=== PATIENT | female | born 1950 | race Caucasian/White ===

== ENCOUNTER → 2020-03-20 08:35 | Outpatient (CLI) | payer OTHER, SELFPAY ==
--- NOTE | 2020-03-20 08:45 | DI.MG.S_ITS ---
Patient Name: MIRELA OROZCO date: 1950 Sex: F Attending Physician: Brigitte Indications: Date: 03/20/2020 08:39 At the request of: KATIE PEDERSEN Procedure: MM screening mammo BI BILATERAL DIGITAL SCREENING MAMMOGRAM 3D/2D WITH CAD: 03/20/2020 CLINICAL: Routine screening. Comparison is made to exams dated: 05/03/2017 mammogram - [facility], 05/02/2014 mammogram - [facility], and 11/27/2012 [facility]. There are scattered fibroglandular elements in both breasts. Current study was also evaluated with a Computer Aided Detection (CAD) system. There are grouped calcifications in the right breast at 12 o'clock middle depth. No other significant masses, calcifications, or other findings are seen in either breast. IMPRESSION: INCOMPLETE: NEEDS ADDITIONAL IMAGING EVALUATION The grouped calcifications in the right breast are indeterminate. A spot compression view is recommended. This exam was interpreted at Station ID: [id number]. NOTE: For mammograms, a report in lay terms will be sent to the patient. Approximately 15% of breast malignancies will not be visualized mammographically. In the management of a palpable breast mass, a negative mammogram must not discourage biopsy of a clinically suspicious lesion. Electronically Signed By: Sheryl ortiz/:03/23/2020 08:31:37 letter sent: Additional Imaging Needed ACR BI-RADS Category 0: Incomplete 3340F
== END ==
PROVIDERS: Family Provider Family Medicine; PCP Family Medicine; Referring Provider Family Medicine; Visit Provider Family Medicine
DX: Z12.31 Encounter for screening mammogram for malignant neoplasm of breast (principal)
CPT/HCPCS: 77063; 77067

== ENCOUNTER → 2020-05-10 12:44 | Outpatient (CLI) | payer OTHER, SELFPAY ==
--- NOTE | 2020-05-10 | DI.MG.S_ITS ---
UNILATERAL RIGHT DIGITAL DIAGNOSTIC MAMMOGRAM 3D/2D WITH ADDITIONAL VIEWS: 05/10/2020 CLINICAL: Additional evaluation requested from prior study. Comparison is made to exams dated: 03/20/2020 mammogram, 05/03/2017 mammogram - [facility], and 05/02/2014 mammogram - [facility]. There are scattered fibroglandular elements in right breast. There are very faint, grouped fine punctate calcifications in the right breast at 12 o'clock middle depth. No associated asymmetry. No other significant masses or calcifications are seen in the breast. IMPRESSION: PROBABLY BENIGN The grouped fine punctate calcifications in the right breast are probably benign. A follow-up right mammogram in 6 months is recommended to demonstrate stability. Findings and recommendations were conveyed to the patient at time of exam. This exam was interpreted at Station ID: [id number]. NOTE: For mammograms, a report in lay terms will be sent to the patient. Approximately 15% of breast malignancies will not be visualized mammographically. In the management of a palpable breast mass, a negative mammogram must not discourage biopsy of a clinically suspicious lesion. Electronically Signed By: Georgie salcedo/:05/10/2020 13:13:08 letter sent: Followup Recommended ACR BI-RADS Category 3: Probably benign [id number]
== END ==
PROVIDERS: Family Provider Family Medicine; PCP Family Medicine; Referring Provider Family Medicine; Visit Provider Family Medicine
DX: R92.8 Other abnormal and inconclusive findings on diagnostic imaging of breast (principal); R92.1 Mammographic calcification found on diagnostic imaging of breast
CPT/HCPCS: 77065; G0279

== ENCOUNTER → 2020-11-03 12:49 | Outpatient (CLI) | payer OTHER, SELFPAY ==
--- NOTE | 2020-11-03 | DI.MG.S_ITS ---
UNILATERAL RIGHT DIGITAL DIAGNOSTIC MAMMOGRAM 3D/2D SHORT-TERM FOLLOW-UP: 11/03/2020 CLINICAL: Short follow up. Comparison is made to exams dated: 05/10/2020 mammogram, 03/20/2020 mammogram, and 05/03/2017 mammogram - [facility]. There are scattered fibroglandular elements in right breast. There is a stable 4 mm area of faint, grouped fine punctate calcifications in the right breast at 11 o'clock middle depth. No other significant masses or calcifications are seen in the breast. IMPRESSION: PROBABLY BENIGN The stable 4 mm area of grouped fine punctate calcifications in the right breast are probably benign. A follow-up right mammogram in 6 months is recommended to demonstrate continued stability. Patient will be due for bilateral mammogram at this same visit. Findings and recommendations were conveyed to the patient at time of exam. This exam was interpreted at Station ID: [id number]. NOTE: For mammograms, a report in lay terms will be sent to the patient. Approximately 15% of breast malignancies will not be visualized mammographically. In the management of a palpable breast mass, a negative mammogram must not discourage biopsy of a clinically suspicious lesion. Electronically Signed By: Georgie salcedo/:11/03/2020 13:32:05 letter sent: Followup Recommended ACR BI-RADS Category 3: Probably benign 3343F
== END ==
PROVIDERS: Family Provider Family Medicine; PCP Family Medicine; Referring Provider Family Medicine; Visit Provider Family Medicine
DX: R92.8 Other abnormal and inconclusive findings on diagnostic imaging of breast (principal); R92.1 Mammographic calcification found on diagnostic imaging of breast
CPT/HCPCS: 77065; G0279

== ENCOUNTER 2021-02-12 14:19 | Emergency (ER) | payer OTHER, SELFPAY ==
[2021-02-12 14:19] VITALS: BP 156/76; PULSE 55; RESP 16; TEMP 36.5; O2SAT 97; BMI 28.7
[2021-02-12 14:20] VITALS: PULSE 56; O2SAT 99
[2021-02-12 14:30] VITALS: PULSE 52; O2SAT 97
--- NOTE | 2021-02-12 14:33 | ED_ITS ---
HPI - Fall General Chief Complaint: Fall Stated Complaint: Fall Time Seen by Provider: 02/12/21 14:24 History of Present Illness HPI Narrative: 71-year-old female nonsmoker with noncontributory medical history presents by EMS for evaluation of an accidental ground level fall with resultant occipital hematoma. She was attempting to get off of a boat onto a dock when she misstepped and fell forward and then rotated around and struck the back of her head. She did not lose consciousness and has had no nausea or vomiting. She denies any focal neurologic findings such as numbness, tingling or weakness. She takes no blood thinners and denies any other injury. She has no neck or back pain. Related Data Previous Rx's Medication Instructions Recorded ondansetron 4 mg disintegrating 4 mg PO TID-QID PRN #10 tab 02/12/21 tablet Review of Systems Review of Systems Narrative: GENERAL: Denies chills, fatigue, malaise, fever, sweats. HEENT: Denies sinus pain, ear pain, sore throat, difficulty swallowing, dizziness. RESPIRATORY: Denies dyspnea, cough, wheezing, hemoptysis, sputum. CARDIOVASCULAR: Denies chest pain, palpitations, orthopnea, edema, GASTROINTESTINAL: Denies nausea, vomiting, abdominal pain, diarrhea, constipation, melena. : Denies dysuria, frequency, incontinence, hematuria, urinary retention. MUSCULOSKELETAL: denies weakness, joint pain, or bony pain SKIN: Denies rash, skin lesions, or other NEUROLOGIC: Denies weakness, headache, numbness, change in speech, confusion, seizures, incoordination. PSYCHIATRIC: No concerning psychosocial issues. 12 point review of systems is negative except for those stated above Exam Narrative Exam Narrative: GENERAL: [71] year old patient appears stated age. Well- developed patient, in mild distress. GCS 15 HEAD: Scalp hematoma, no laceration or evidence of depressed skull fracture EYES: Pupils equal round and reactive. Extraocular motions intact. No scleral icterus. No injection or drainage. ENT: Nose without bleeding, purulent drainage. Throat without erythema, tonsillar hypertrophy or exudate. Airway patent. NECK: Trachea midline. Non tender CARDIOVASCULAR: Regular rate and rhythm without murmurs, gallops, or rubs. RESPIRATORY: Clear to auscultation. Breath sounds equal bilaterally. No wheezes, rales, or rhonchi. GASTROINTESTINAL: Abdomen soft, non-tender, nondistended. EXTREMITIES: No edema or joint tenderness. BACK: Nontender without deformity or crepitance. No flank tenderness. NEURO: AOx3. SKIN: No rash or erythema of visible areas Initial Vital Signs Initial Vital Signs: Vital Signs Temperature 97.7 F 02/12/21 14:19 Pulse Rate 55 L 02/12/21 14:19 Respiratory Rate 16 02/12/21 14:19 Blood Pressure 156/76 H 02/12/21 14:19 Pulse Oximetry 97 02/12/21 14:19 Course Orders Ordered: ED Orders 02/12/21 14:33 CT head/brain wo con Stat Vital Signs Vital signs: Vital Signs - 8 hr 02/12/21 14:19 02/12/21 14:20 02/12/21 14:30 Temperature 97.7 F Pulse Rate 55 L 56 L 52 L Respiratory Rate 16 Blood Pressure 156/76 H Pulse Oximetry 97 99 97 02/12/21 15:00 02/12/21 15:30 02/12/21 15:32 Temperature Pulse Rate 52 L 53 L 56 L Respiratory Rate Blood Pressure 148/68 H Pulse Oximetry 97 96 98 Discharge Plan Departure Patient Disposition: Home Clinical Impression: Concussion without loss of consciousness Qualifiers: Encounter type: initial encounter Qualified Code(s): S06.0X0A - Concussion without loss of consciousness, initial encounter Contusion of scalp Qualifiers: Encounter type: initial encounter Qualified Code(s): S00.03XA - Contusion of scalp, initial encounter Instructions: How to Prevent Falls Activity Restrictions/Additional Instructions: *You have been diagnosed with [head injury with scalp contusion, CT scan is reassuring and there is no evidence of fracture or bleeding. You do likely have a mild concussion] *What to do: *Please continue to take your regular medications as directed. [x ] New medication prescriptions sent to your pharmacy: [ ] [ ] New medication written as a paper prescription [ ] No new medications given *Please follow up with your primary care provider in 2-3 days, call for an appointment. Let them know you were seen in the Emergency Department and that we ask that you be seen in follow up. We will electronically transmit a record of today's note if your PCP is in our system You have a slight concussion and will likely have a mild headache and some nausea for a few days. Avoiding highly stimulating activities and even TV or computers may be helpful in minimizing your symptoms. Avoid activities that will put you at risk for another head injury for at least a week. You can take tylenol or motrin for headache or the prescription provided for nausea/vomiting. Return for worsening or persistent symptoms Prescriptions: New ondansetron 4 mg tablet,disintegrating 4 mg PO TID-QID PRN (Reason: nausea and vomiting) Qty: 10 RF: 0 Referrals: Willi Briggs MD [Primary Care Provider] -
--- NOTE | 2021-02-12 14:33 | DI.CT.S_ITS ---
PROCEDURE: CT HEAD/BRAIN WO CON INDICATIONS: head injury, altered TECHNIQUE: Noncontrast 4.5 mm thick angled axial sections acquired from the foramen magnum to the vertex, with coronal and sagittal reformats. For radiation dose reduction, the following was used: automated exposure control, adjustment of mA and/or kV according to patient size. COMPARISON: None. FINDINGS: Image quality: Excellent. CSF spaces: Basal cisterns are patent. No extra-axial fluid collections. The ventricles are symmetric in size and shape. Brain: No intracranial bleeds or masses. There is cerebral volume loss for age, with resultant ventricular and sulcal prominence. There are periventricular and deep white matter chronic small vessel ischemic changes. There is intracranial internal carotid artery atherosclerosis. Skull and face: Calvarium and visualized facial bones appear intact, without suspicious lesions. Sinuses: Visualized sinuses and mastoids are clear. IMPRESSION: No acute intracranial abnormality. Dictated by: Noah Mix M.D. on 02/12/2021 at 13:59 Approved by: Noah Mix M.D. on 02/12/2021 at 14:00
[2021-02-12 15:00] VITALS: PULSE 52; O2SAT 97
[2021-02-12 15:30] VITALS: PULSE 53; O2SAT 96
[2021-02-12 15:32] VITALS: BP 148/68; PULSE 56; O2SAT 98
--- NOTE | 2021-02-12 15:37 | PC.NURSE ---
pt given paper scrub pants to replace her wet pants and pair of socks. ambulatory with steady gait. calling for ride home
== END 2021-02-12 15:58 | disposition home or self-care (01) ==
PROVIDERS: Emergency Provider Emergency Medicine; Family Provider Family Medicine; PCP Family Medicine
DX: S06.0X0A Concussion without loss of consciousness, initial encounter (principal); S00.03XA Contusion of scalp, initial encounter; W18.00XA Striking against unspecified object with subsequent fall, initial encounter
CPT/HCPCS: 70450; 99283; 99284

== ENCOUNTER → 2021-06-17 13:10 | Outpatient (CLI) | payer OTHER, SELFPAY ==
--- NOTE | 2021-06-17 | DI.MG.S_ITS ---
BILATERAL DIGITAL DIAGNOSTIC MAMMOGRAM 3D/2D: 06/17/2021 CLINICAL: Short term follow up of the right breast, due for bilateral imaging. Comparison is made to exams dated: 11/03/2020 mammogram, 05/10/2020 mammogram, and 03/20/2020 mammogram - [facility]. There are scattered fibroglandular elements in both breasts. There is a 4 mm area of grouped fine punctate calcifications in the right breast at 11 o'clock middle depth. These are seen in additional views. These are more prominent. No other significant masses, calcifications, or other findings are seen in either breast. IMPRESSION: SUSPICIOUS OF MALIGNANCY The 4 mm area of grouped fine punctate calcifications in the right breast are suspicious of malignancy. A stereotactic biopsy is recommended. Findings and recommendations were discussed with the patient in person by Dr. Vinay Hernandez at time of exam. This exam was interpreted at Station ID: [id number]. NOTE: For mammograms, a report in lay terms will be sent to the patient. Approximately 15% of breast malignancies will not be visualized mammographically. In the management of a palpable breast mass, a negative mammogram must not discourage biopsy of a clinically suspicious lesion. Electronically Signed By: Georgie salcedo/:06/17/2021 14:11:39 letter sent: Biopsy Required ACR BI-RADS Category 4: Suspicious abnormality 3344F
== END ==
PROVIDERS: Family Provider Family Medicine; PCP Family Medicine; Referring Provider Family Medicine; Visit Provider Family Medicine
DX: R92.8 Other abnormal and inconclusive findings on diagnostic imaging of breast (principal); R92.1 Mammographic calcification found on diagnostic imaging of breast
CPT/HCPCS: 77066; G0279

== ENCOUNTER → 2022-11-29 09:53 | Outpatient (CLI) | payer OTHER, SELFPAY ==
--- NOTE | 2022-11-29 | DI.MG.S_ITS ---
BILATERAL DIGITAL SCREENING MAMMOGRAM 3D/2D WITH CAD: 11/29/2022 CLINICAL: Routine screening. Comparison is made to exams dated: 06/17/2021 mammogram, 11/03/2020 mammogram, 03/20/2020 mammogram, and 05/03/2017 mammogram - [facility]. There are scattered areas of fibroglandular density in both breasts (category b / 25%-50% glandular tissue). Current study was also evaluated with a Computer Aided Detection (CAD) system. There is a biopsy clip in the right breast. No significant masses, calcifications, or other findings are seen in either breast. There has been no significant interval change. IMPRESSION: NEGATIVE There is no mammographic evidence of malignancy. A 1 year screening mammogram is recommended. Based on the Tyrer Cuzick model (a risk assessment model) the patient's lifetime risk is 4.8% and her 10 year risk is 3.0%. According to the ACR, ACS, and NCCN guidelines, an annual breast MRI exam along with mammogram is recommended if the patient's lifetime risk is 20% or greater. This exam was interpreted at Station ID: [id number]. NOTE: For mammograms, a report in lay terms will be sent to the patient. Approximately 15% of breast malignancies will not be visualized mammographically. In the management of a palpable breast mass, a negative mammogram must not discourage biopsy of a clinically suspicious lesion. Electronically Signed By: Efren cohen/juan:11/29/2022 16:11:54 letter sent: Normal Exam ACR BI-RADS Category 1: Negative [id number]
== END ==
PROVIDERS: Family Provider Family Medicine; PCP Family Medicine; Referring Provider Family Medicine; Visit Provider Family Medicine
DX: Z12.31 Encounter for screening mammogram for malignant neoplasm of breast (principal)
CPT/HCPCS: 77063; 77067

== ENCOUNTER → 2022-11-30 11:10 | Outpatient (CLI) | payer OTHER, SELFPAY ==
--- NOTE | 2022-11-30 | DI.RAD.S_ITS ---
Bone Density Report Name: MIRELA MARTE Age: 72 Sex: Female Ethnicity: White Date of : 1950 Indication: postmenopausal; screening for osteoporosis; parental hip fracture; Referring Provider: KATIE PEDERSEN Study: Bone densitometry was performed. Exam Date: November 30, 2022 Accession number: [id number] Bone Density: Region BMD T-score Z-score Classification AP Spine(L1, L2, L3) 0.954 -0.6 1.5 Normal Femoral Neck (Left) 0.698 -1.4 0.5 Osteopenia Total Hip (Left) 0.935 -0.1 1.5 Normal Femoral Neck (Right) 0.679 -1.5 0.3 Osteopenia Total Hip (Right) 0.904 -0.3 1.2 Normal Total Hip Mean 0.919 -0.2 1.4 Normal World Health Organization criteria for BMD impression classify patients as: Normal (T-score at or above -1.0), Osteopenia (T-score between -1.0 and -2.5), or Osteoporosis (T-score at or below -2.5). 10-year Fracture Risk(1): Major Osteoporotic Fracture 16% Hip Fracture 3.5% Reported Risk Factors: [place] (), Neck BMD=0.679, BMI=29.4, parental fracture (1) FRAX(R) Version 3.08. Fracture probability calculated for an untreated patient. Fracture probability may be lower if the patient has received treatment. Impression: The patient has low bone mass, based on the Right Femoral Neck T-score. The patient has an estimated ten-year risk of hip fracture of 3.5% and an estimated ten-year risk of major fracture of 16%, based on the WHO FRAX algorithm. The patient has risk factors, including: parental hip fracture. Discussion: BONE DENSITY IS LOW AT ONE OR MORE SKELETAL SITES. THE PATIENT'S BMD AND CLINICAL RISK FACTORS CONTRIBUTE TO THIS PATIENT'S INCREASED RISK OF FRACTURE. This patient's lowest T-score is low at one or more skeletal sites. It meets the World Health Organization's (WHO) criteria for low bone mass (T-score between -1.0 and -2.5). The patient's 10-year risk of hip fracture as calculated by FRAX exceeds the threshold where pharmacological therapy is recommended by the National Osteoporosis Foundation (NOF). However, all treatment decisions require clinical judgment and consideration of individual patient factors, including patient preferences, comorbidities, previous drug use, risk factors not captured in the FRAX model (e.g., frailty, falls, vitamin D deficiency, increased bone turnover, interval significant decline in bone density) and possible under or overestimation of fracture risk by FRAX. The patient should follow a healthful lifestyle (good nutrition with adequate calcium and vitamin D, and appropriate weight-bearing exercise). Follow-Up: Consider a repeat BMD and Vertebral Fracture Assessment (VFA) exam in 2 years or sooner if medically necessary, to reassess this patient's status. Reported by: ZOE KENNEDY M.D. on 11/30/2022 11:33:00 AM.
== END ==
PROVIDERS: Family Provider Family Medicine; PCP Family Medicine; Referring Provider Family Medicine; Visit Provider Family Medicine
DX: Z78.0 Asymptomatic menopausal state (principal); M85.88 Other specified disorders of bone density and structure, other site
CPT/HCPCS: 77080

== ENCOUNTER → 2023-12-11 10:26 | Outpatient (CLI) | payer OTHER, SELFPAY ==
--- NOTE | 2023-12-11 | DI.MG.S_ITS ---
BILATERAL DIGITAL SCREENING MAMMOGRAM 3D/2D WITH CAD: 12/11/2023 CLINICAL: Routine screening. Comparison is made to exams dated: 11/29/2022 mammogram, 06/17/2021 mammogram, and 03/20/2020 mammogram - [facility]. There are scattered areas of fibroglandular density in both breasts (category b / 25%-50% glandular tissue). Current study was also evaluated with a Computer Aided Detection (CAD) system. There is a biopsy clip in the right breast. No significant masses, calcifications, or other findings are seen in either breast. There has been no significant interval change. IMPRESSION: NEGATIVE There is no mammographic evidence of malignancy. A 1 year screening mammogram is recommended. Based on the Tyrer Cuzick model (a risk assessment model) the patient's lifetime risk is 4.5% and her 10 year risk is 3.1%. According to the ACR, ACS, and NCCN guidelines, an annual breast MRI exam along with mammogram is recommended if the patient's lifetime risk is 20% or greater. This exam was interpreted at Station ID: [id number]. NOTE: For mammograms, a report in lay terms will be sent to the patient. Approximately 15% of breast malignancies will not be visualized mammographically. In the management of a palpable breast mass, a negative mammogram must not discourage biopsy of a clinically suspicious lesion. Electronically Signed By: Georgie salcedo/juan:12/11/2023 12:58:05 letter sent: Normal Exam ACR BI-RADS Category 1: Negative 3341F
== END ==
PROVIDERS: Family Provider Family Medicine; PCP Family Medicine; Referring Provider Family Medicine; Visit Provider Family Medicine
DX: Z12.31 Encounter for screening mammogram for malignant neoplasm of breast (principal); Z80.3 Family history of malignant neoplasm of breast; R92.323 Mammographic fibroglandular density, bilateral breasts
CPT/HCPCS: 77063; 77067

== ENCOUNTER → 2024-05-19 11:25 | Outpatient (CLI) | payer OTHER, SELFPAY ==
--- NOTE | 2024-05-19 11:27 | DI.RAD.S_ITS ---
PROCEDURE: XR KNEE RT 3V INDICATIONS: Pain in right knee TECHNIQUE: 3 views of the knee were acquired. COMPARISON: None. FINDINGS: Bones: There are no osseous abnormalities. Joints: Moderate right patellofemoral medial tibial femoral degeneration appreciated. There is mild left medial tibial femoral degeneration. Mild left medial tibial femoral degeneration Soft tissues: Normal IMPRESSION: Degeneration Dictated by: Gal Ochoa M.D. on 05/20/2024 at 9:53 Approved by: Gal Ochoa M.D. on 05/20/2024 at 9:53
== END ==
PROVIDERS: Family Provider Family Medicine; PCP Family Medicine; Referring Provider Family Medicine; Visit Provider Family Medicine
DX: M25.561 Pain in right knee (principal); M17.11 Unilateral primary osteoarthritis, right knee
CPT/HCPCS: 73562

== ENCOUNTER → 2024-12-11 | Outpatient (CLI) | payer MEDICARE, SELFPAY ==
--- NOTE | 2024-12-11 15:49 | DI.MG.S_ITS ---
MM screening mammo BI: 12/11/2024. BI-RADS: 2 CLINICAL: 74-year old female for bilateral screening mammogram. Tyrer-Cuzick lifetime risk of 3.6%. No personal or first-degree family history of breast cancer. The patient had a prior right breast biopsy. PRIOR EXAMS 12/11/2023, 11/29/2022, 06/28/2021, 06/17/2021, 11/03/2020, 05/10/2020, 03/20/2020, 05/03/2017. MAMMOGRAPHY TECHNIQUE: 2D and 3D (tomosynthesis) digital mammographic views obtained, with additional images as needed for full coverage. Current study was also evaluated with a Computer Aided Detection (CAD) system. DENSITY A. The breasts are almost entirely fatty. MAMMOGRAPHY FINDINGS Right: Biopsy marker present on the right. There are no suspicious masses, calcifications, or other findings in the breast. Left: No suspicious mass, asymmetry, microcalcification, or other abnormality seen. IMPRESSION: Right * No evidence of malignancy with benign findings. Left * No evidence of malignancy. RECOMMENDATIONS Bilateral * Annual screening mammography. OVERALL ASSESSMENT CATEGORY BI-RADS-2: Benign. The [employer] recommends annual screening mammography beginning at age 40 for women with average risk of breast cancer. ELECTRONICALLY SIGNED: Dionicio Workman M.D. on 12/12/2024 at 01:33:01 PM PT Interpreting Station ID: [id number]
== END ==
LOC: MAMMO 15:48
PROVIDERS: Family Provider Family Medicine; PCP Family Medicine; Referring Provider Family Medicine; Visit Provider Family Medicine
DX: Z12.31 Encounter for screening mammogram for malignant neoplasm of breast (principal); R92.313 Mammographic fatty tissue density, bilateral breasts
CPT/HCPCS: 77063; 77067